=== PATIENT | male | born 1955 | race Caucasian/White ===

== ENCOUNTER 2016-08-12 09:25 | Emergency (ER) | payer SELFPAY | END 2016-08-12 10:35 | disposition home or self-care (01) | LOC: ER 09:25 | PROC: 3E0234Z Introduction of Serum, Toxoid and Vaccine into Muscle, Percutaneous Approach (ICD-10-PCS; principal; 2016-08-12) | DX: L03.115 Cellulitis of right lower limb (principal); S91.331A Puncture wound without foreign body, right foot, initial encounter; W45.0XXA Nail entering through skin, initial encounter; I10 Essential (primary) hypertension; Z79.899 Other long term (current) drug therapy; Z23 Encounter for immunization | CPT/HCPCS: 73620; 90471; 90715; 99283-25 ==